=== PATIENT | female | born 1940 | race Caucasian/White ===

== ENCOUNTER 2018-01-09 16:32 | Inpatient (IN) | payer MEDICARE ==
[~2018-01-09] VITALS: Ht 167.6 cm; Wt 84.0 kg
[2018-01-09 16:56] LABS: BASOPHILS ABSOLUTE AUTO 0.06 K/mm3 (0.00-0.23); BASOPHILS PERCENT AUTO 1 % (0-2); EOSINOPHILS ABSOLUTE AUTO 0.24 K/mm3 (0.00-0.68); EOSINOPHILS PERCENT AUTO 3 % (0-6); Hematocrit 40.1 % (33.0-51.0); Hemoglobin 12.9 g/dL (11.5-16.0); IMMATURE GRAN ABSOLUTE AUTO 0.02 K/mm3 (0.00-0.10); IMMATURE GRAN PERCENT AUTO 0 % (0-1); LYMPHOCYTES ABSOLUTE AUTO 2.81 K/mm3 (0.84-5.20); LYMPHOCYTES PERCENT AUTO 37 % (21-46); MONOCYTES ABSOLUTE AUTO 0.64 K/mm3 (0.16-1.47); MONOCYTES PERCENT AUTO 9 % (4-13); Mean Corpuscular HGB 29.5 pg (26.0-34.0); Mean Corpuscular HGB Conc 32.2 g/dL (31.5-36.5); Mean Corpuscular Volume 92 fL (80-100); Mean Platelet Volume 9.8 fL (9.1-12.4); NEUTROPHILS ABSOLUTE AUTO 3.75 K/mm3 (1.96-9.15); NEUTROPHILS PERCENT AUTO 50 % (41-73); Platelet Count 266 K/mm3 (150-400); RDW Coefficient Variation 14.8 % (11.7-14.2); RDW Standard Deviation 50.3 fL (35.1-46.3); Red Blood Cell Count 4.37 M/mm3 (3.80-5.20); White Blood Cell Count 7.52 K/mm3 (4.00-11.30)
[2018-01-09 17:10] LABS: Calcium, Ionized (POC) 1.23 mmol/L (1.10-1.46); Chloride (POC) 100 mmol/L (98-108); Creatinine (POC) 1.2 mg/dL (0.6-1.0); Glucose (ISTAT POC) 174 mg/dL (70-99); Hemoglobin (POC) 13.3 g/dL (12.0-16.0); Potassium (POC) 4.6 mmol/L (3.5-5.5); Sodium (POC) 135 mmol/L (135-148); Total CO2 (POC) 24 mmol/L (21-32)
[2018-01-09 17:31] LABS: Albumin, Blood 4.2 g/dL (3.4-5.0); Bilirubin, Total 0.4 mg/dL (0.1-1.0); Bun/Creatinine Ratio 31.9 (12.0-20.0); Creatinine, Blood 1.13 mg/dL (0.40-1.00); Globulin, Blood 4.4 g/dL (2.2-4.0); Total Protein, Blood 8.6 g/dL (6.4-8.2); Troponin I 0.092 ng/mL (0.000-0.040)
[2018-01-09] MEDS ORDERED: METF500C PO (19:00)
[2018-01-09] MEDS ORDERED: LEVSOD100 PO (19:00)
[2018-01-09] MEDS ORDERED: LOSA50 PO (19:03)
[2018-01-09] MEDS ORDERED: ASCO500 PO (19:04)
[2018-01-09] MEDS ORDERED: Vitamin D2000 UNIT PO (19:05)
[2018-01-09] MEDS ORDERED: FISH OIL 1,2001 EAC1 PO (19:06)
[2018-01-09] MEDS ORDERED: LUTEIN40 MG PO (19:06)
[2018-01-09] MEDS ORDERED: GARLIC PO (19:07)
[2018-01-09] MEDS ORDERED: FLAX PO (19:08)
[2018-01-09] MEDS ORDERED: TURMERIC 500 M1 EACH PO (19:09)
[2018-01-09] MEDS ORDERED: Hair, Skin & N1 EACH (19:12)
[2018-01-09] MEDS ORDERED: B COMPLEX WITH1 EACH PO (19:12)
[2018-01-10 04:52] LABS: Bun/Creatinine Ratio 27.1 (12.0-20.0); Calcium, Blood 9.3 mg/dL (8.5-10.1); Creatinine, Blood 1.4 mg/dL (0.40-1.00); Potassium, Blood 5.3 mmol/L (3.5-5.5)
[2018-01-10 04:53] LABS: Troponin I 30.7 ng/mL (0.000-0.040)
[2018-01-10 09:39] LABS: Creatine Kinase MB Index 9.6 (0.0-4.0)
[2018-01-10 10:08] LABS: Troponin I 53.3 ng/mL (0.000-0.040)
[2018-01-13] MEDS ORDERED: ASPI81CH PO (11:26)
[2018-01-13] MEDS ORDERED: CARV25 PO (11:27)
[2018-01-13] MEDS ORDERED: Isosorbide Mono30 MG PO (11:28)
[2018-01-13] MEDS ORDERED: CLOP75 PO (11:29)
[2018-01-13] MEDS ORDERED: ROSU5 PO (11:32)
[2018-01-13] MEDS ORDERED: TORSE20 PO (11:33)
[2018-01-13] MEDS ORDERED: SPIR25 PO (11:35)
== END 2018-01-13 12:46 | disposition home or self-care (01) | DRG 243 ==
LOC: ER 16:32 → PCU 16:33 → ICUW 17:18 → PCU 17:18 → ER 17:18 → PCU 17:20 → ICUW 17:52 → PCU 18:45
PROVIDERS: Emergency Medicine; Internal Medicine Interventional Cardiology; Physician Assistant
PROC: 4A023N7 Measurement of Cardiac Sampling and Pressure, Left Heart, Percutaneous Approach (ICD-10-PCS; 2018-01-09)
PROC: B211YZZ Fluoroscopy of Multiple Coronary Arteries using Other Contrast (ICD-10-PCS; 2018-01-09)
PROC: 0JH604Z Insertion of Pacemaker, Single Chamber into Chest Subcutaneous Tissue and Fascia, Open Approach (ICD-10-PCS; principal; 2018-01-11)
PROC: 02HK3JZ Insertion of Pacemaker Lead into Right Ventricle, Percutaneous Approach (ICD-10-PCS; 2018-01-11)
DX: I21.09 ST elevation (STEMI) myocardial infarction involving other coronary artery of anterior wall (principal); I50.30 Unspecified diastolic (congestive) heart failure; G47.33 Obstructive sleep apnea (adult) (pediatric); I11.0 Hypertensive heart disease with heart failure; I50.9 Heart failure, unspecified; E11.9 Type 2 diabetes mellitus without complications; E78.5 Hyperlipidemia, unspecified; K21.9 Gastro-esophageal reflux disease without esophagitis; I27.22 Pulmonary hypertension due to left heart disease
CPT/HCPCS: 33208; 36415; 71046; 80047; 80048; 80053; 82550; 82553; 82947; 84484; 85014; 85025; 93005; 93010; 93454; 93571; 94660; 94761; 94762; 96361; 96374; 96375; 99152; 99153; 99285; C1769; C1785; C1894; C1898; C8929; G0378; J0461; J0690; J1644; J1940; J2250; J2405; J3010; J7030; J7040; Q9957; Q9967